=== PATIENT | female | born 1935 | race Caucasian/White ===

== ENCOUNTER → 2018-09-07 17:12 | Outpatient (CLI) | payer MEDICARE ==
[2018-09-07 19:20] LABS: BASOPHILS 0.2 % (0-2); EOSINOPHILS 4.5 % (0-7); HEMOGLOBIN 8.6 g/dL (12-16); IMMATURE GRANULOCYTES 0.8 % (0-5); LYMPHOCYTES 8.9 % (15-50); MCH 27.9 pg (26.0-34.0); MCHC 31.9 g/dL (31.0-37.0); MCV 87.7 fL (80.0-100.0); MEAN PLATELET VOLUME 9.4 fL (7.4-10.4); MONOCYTES 9.7 % (2-11); NEUTROPHILS 75.9 % (40-80); PLATELET COUNT 343 10x3/uL (130-400); RBC 3.08 10x6/uL (4.00-5.40); RDW 14.8 % (11.5-14.5); WBC 4.9 10x3/uL (4.8-10.8)
[2018-09-07 19:46] LABS: ANION GAP 12.5 mmol/L (8-16); CALCIUM 8.5 mg/dL (8.5-10.1); CARBON DIOXIDE 29.5 mmol/L (21.0-32.0); CREATININE - SERUM 0.9 mg/dL (0.6-1.3); VANCOMYCIN - TROUGH 12.1 ug/mL (10.0-20.0)
[2018-09-07 20:28] LABS: ERYTHROCYTE SEDIMENTATION RATE 52 mm/hr (0-42)
== END | disposition home or self-care (01) ==
LOC: D.LABREF 17:12
PROVIDERS: Internal Medicine Infectious Disease
DX: M43.26 Fusion of spine, lumbar region (principal); M46.46 Discitis, unspecified, lumbar region; Z51.81 Encounter for therapeutic drug level monitoring; Z79.2 Long term (current) use of antibiotics; D64.9 Anemia, unspecified

== ENCOUNTER → 2018-09-14 09:53 | Outpatient (CLI) | payer MEDICARE ==
[2018-09-14 10:33] LABS: BASOPHILS 0.3 % (0-2); HEMOGLOBIN 8.5 g/dL (12-16); IMMATURE GRANULOCYTES 0.5 % (0-5); LYMPHOCYTES 8.1 % (15-50); MCH 27.9 pg (26.0-34.0); MCHC 31.5 g/dL (31.0-37.0); MCV 88.5 fL (80.0-100.0); MEAN PLATELET VOLUME 9.2 fL (7.4-10.4); MONOCYTES 13.5 % (2-11); NEUTROPHILS 76.6 % (40-80); PLATELET COUNT 383 10x3/uL (130-400); RBC 3.05 10x6/uL (4.00-5.40); WBC 6.2 10x3/uL (4.8-10.8)
[2018-09-14 10:47] LABS: ANION GAP 10.4 mmol/L (8-16); CALCIUM 8.5 mg/dL (8.5-10.1); CREATININE - SERUM 0.9 mg/dL (0.6-1.3); POTASSIUM - SERUM 4.4 mmol/L (3.5-5.1); VANCOMYCIN - TROUGH 10.6 ug/mL (10.0-20.0)
[2018-09-14 12:03] LABS: ERYTHROCYTE SEDIMENTATION RATE 75 mm/hr (0-42)
== END | disposition home or self-care (01) ==
LOC: D.LABREF 09:53
PROVIDERS: Family Medicine
DX: M43.26 Fusion of spine, lumbar region (principal); Z51.81 Encounter for therapeutic drug level monitoring; Z79.2 Long term (current) use of antibiotics

== ENCOUNTER → 2019-03-02 16:32 | Outpatient (CLI) | payer MEDICARE ==
[2019-03-02 18:07] LABS: BASOPHILS 0.2 % (0-2); EOSINOPHILS 1.1 % (0-7); HEMATOCRIT 26.5 % (36.0-48.0); HEMOGLOBIN 8.5 g/dL (12-16); IMMATURE GRANULOCYTES 0.2 % (0-5); LYMPHOCYTES 11.5 % (15-50); MCH 26.8 pg (26.0-34.0); MCHC 32.1 g/dL (31.0-37.0); MCV 83.6 fL (80.0-100.0); MEAN PLATELET VOLUME 9.4 fL (7.4-10.4); MONOCYTES 14.4 % (2-11); NEUTROPHILS 72.6 % (40-80); PLATELET COUNT 310 10x3/uL (130-400); RBC 3.17 10x6/uL (4.00-5.40); RDW 17.3 % (11.5-14.5); WBC 6.2 10x3/uL (4.8-10.8)
[2019-03-02 18:29] LABS: ALBUMIN 2.5 g/dL (3.4-5.0); BILIRUBIN - DIRECT 0.06 mg/dL (0.00-0.30); BILIRUBIN - INDIRECT 0.18 mg/dL (0.00-1.00); BILIRUBIN - TOTAL 0.24 mg/dL (0.2-1.3); PROTEIN - SERUM 6.9 g/dL (6.4-8.2)
== END | disposition home or self-care (01) ==
LOC: D.LABREF 16:32
PROVIDERS: ATTEND Internal Medicine
DX: T84.53XD Infection and inflammatory reaction due to internal right knee prosthesis, subsequent encounter (principal)

== ENCOUNTER → 2019-03-23 15:38 | Outpatient (CLI) | payer MEDICARE ==
[2019-03-23 15:55] LABS: BASOPHILS 0.5 % (0-2); EOSINOPHILS 3.8 % (0-7); HEMOGLOBIN 8.6 g/dL (12-16); IMMATURE GRANULOCYTES 0.5 % (0-5); LYMPHOCYTES 12.7 % (15-50); MCH 26.5 pg (26.0-34.0); MCHC 31.9 g/dL (31.0-37.0); MCV 83.3 fL (80.0-100.0); MEAN PLATELET VOLUME 9.5 fL (7.4-10.4); NEUTROPHILS 68.5 % (40-80); PLATELET COUNT 317 10x3/uL (130-400); RBC 3.24 10x6/uL (4.00-5.40); RDW 17.4 % (11.5-14.5); WBC 3.9 10x3/uL (4.8-10.8)
[2019-03-23 16:15] LABS: ALBUMIN 2.6 g/dL (3.4-5.0); BILIRUBIN - INDIRECT 0.16 mg/dL (0.00-1.00); BILIRUBIN - TOTAL 0.2 mg/dL (0.2-1.3); CREATININE - SERUM 0.9 mg/dL (0.6-1.3); PROTEIN - SERUM 6.4 g/dL (6.4-8.2)
[2019-03-23 16:16] LABS: BILIRUBIN - DIRECT 0.04 mg/dL (0.00-0.30)
== END | disposition home or self-care (01) ==
LOC: D.LABREF 15:38
PROVIDERS: ATTEND Internal Medicine
DX: T84.53XD Infection and inflammatory reaction due to internal right knee prosthesis, subsequent encounter (principal); Z51.81 Encounter for therapeutic drug level monitoring; Z79.2 Long term (current) use of antibiotics; Z45.2 Encounter for adjustment and management of vascular access device